=== PATIENT | female | born 1935 | race Caucasian/White ===

== ENCOUNTER 2017-01-09 03:10 | Emergency (ER) | payer MEDICAID, OTHER ==
[2017-01-09] MEDS ORDERED: SOLUMEDROL 125 MG/2 ML 125 MG/2 ML PDS ONE ×2 (03:13→03:21)
[2017-01-09] MEDS ORDERED: ALBUTEROL/IPRATROPIUM 1 VIAL SOL ONE ×2 (03:15→03:21)
[2017-01-09] MEDS ORDERED: ALBUTEROL/IPRATROPIUM 1 VIAL SOL INH ONE ×2 (03:18→03:20)
[2017-01-09] MEDS ORDERED: MAGNESIUM SULFATE 5 GM/10 ML SOL ONE (03:25)
[2017-01-09] MEDS ORDERED: MORPHINE SULFATE 10 MG/ML SOL IV ONE (03:34)
[2017-01-09] MEDS ORDERED: FUROSEMIDE 100 MG SOL IV ONE (03:34)
[2017-01-09] MEDS ORDERED: FUROSEMIDE 100 MG SOL ONE (03:35)
[2017-01-09] MEDS ORDERED: MORPHINE SULFATE 10 MG/ML SOL ONE (03:35)
[2017-01-09] MEDS ORDERED: SODIUM CHLORIDE 0.9% FLUSH 10 ML SOL IV PRN (03:35)
[2017-01-09] MEDS ORDERED: ACETAMINOPHEN 500 MG 500 MG TAB PO ONE (03:51)
[2017-01-09 04:02] LABS: BASOPHILS % (AUTO) 1 % (0-3); EOSINOPHILS % (AUTO) 0 % (0-9); HEMATOCRIT 41 % (35-47); MEAN CORPUSCULAR HGB CONC 33.9 gm/dl (32.0-36.0); MEAN CORPUSCULAR VOLUME 86 fL (81-99); MONOCYTES % (AUTO) 7.6 % (0-12); NEUTROPHILS % (AUTO) 77.7 % (37-80)
[2017-01-09 04:04] LABS: ABG PH 7.42 (7.35-7.45)
[2017-01-09] MEDS ORDERED: ACETAMINOPHEN 500 MG 500 MG TAB ONE (04:09)
[2017-01-09 04:10] LABS: CALCIUM 8.5 mg/dl (8.5-10.1); MAGNESIUM 1.9 mg/dl (1.8-2.4); POTASSIUM 3.7 mMol/L (3.5-5.1)
[2017-01-09 04:42] LABS: APPEARANCE,URINE Slightly Cloudy; BILIRUBIN,URINE NEGATIVE (NEGATIVE); COLOR,URINE Yellow; GLUCOSE, URINE (UA) NEGATIVE (NEGATIVE); KETONES,URINE TRACE (NEGATIVE); LEUKOCYTE ESTERASE ,URINE NEGATIVE (NEGATIVE); NITRATE,URINE NEGATIVE (NEGATIVE); OCCULT BLOOD,URINE 1+ (NEG-TRACE); UROBILINOGEN,URINE 0.2 (0.2-1.0 EU)
[2017-01-09 04:51] LABS: WBC,URINE 0-3 (0-5AV/HPF)
[2017-01-09 04:57] VITALS: BP 122/55; PULSE 93; RESP 22; TEMP 100; O2SAT 97
[2017-01-09] MEDS ORDERED: ENOXAPARIN 60 MG SOL SC SCH (05:00)
[2017-01-09] MEDS ORDERED: SOLUMEDROL 125 MG/2 ML 125 MG/2 ML PDS IV ONE (05:00)
[2017-01-09] MEDS ORDERED: ENOXAPARIN 60 MG SOL SC ONE (05:00)
[2017-01-09] MEDS ORDERED: ASPIRIN 81 MG CHEWABLE CTB ONE (05:00)
[2017-01-09] MEDS ORDERED: ASPIRIN 325 MG TAB PO SCH (09:00)
== END 2017-01-09 05:05 | disposition short-term general hospital (02) | DRG 311 ==
LOC: ED 03:10
DX: I24.9 Acute ischemic heart disease, unspecified (principal); R06.00 Dyspnea, unspecified
CPT/HCPCS: 36415; 36600; 71010; 80048; 81001; 82803; 83735; 83880; 84484; 85025; 87040; 87804; 93005; 99291; J1650; J1940; J2270; J2930; J3475; J7620

== ENCOUNTER 2017-02-08 20:55 | Emergency (ER) | payer OTHER ==
[2017-02-08 21:06] VITALS: BP 168/79; PULSE 73; RESP 20; TEMP 97.7; O2SAT 98
[2017-02-08 22:17] LABS: APPEARANCE,URINE Slightly Cloudy; BILIRUBIN,URINE NEGATIVE (NEGATIVE); COLOR,URINE Yellow; GLUCOSE, URINE (UA) NEGATIVE (NEGATIVE); KETONES,URINE NEGATIVE (NEGATIVE); LEUKOCYTE ESTERASE ,URINE TRACE (NEGATIVE); NITRATE,URINE NEGATIVE (NEGATIVE); OCCULT BLOOD,URINE TRACE LYSED (NEG-TRACE); PH,URINE 5.5; UROBILINOGEN,URINE 0.2 (0.2-1.0 EU)
[2017-02-08 22:28] LABS: RBC,URINE 0-3 (0-3AV/HPF)
== END 2017-02-08 23:05 | disposition home or self-care (01) | DRG 392 ==
LOC: ED 20:55
DX: K59.00 Constipation, unspecified (principal)
CPT/HCPCS: 51798; 74020; 81001; 99282

== ENCOUNTER 2017-02-18 21:04 | Emergency (ER) | payer OTHER ==
[2017-02-18] MEDS ORDERED: APAP/HYDROCODONE 325/5 TAB PO ONE (21:16)
[2017-02-18] MEDS ORDERED: LABETALOL HYDROCHLORIDE 5 MG/ML SOL IV ONE ×2 (21:18→21:20)
[2017-02-18] MEDS ORDERED: APAP/HYDROCODONE 325/5 TAB ONE (21:18)
[2017-02-18 21:31] VITALS: RESP 18; TEMP 97.5; O2SAT 94
[2017-02-18] MEDS ORDERED: FUROSEMIDE 20 MG TAB ONE (22:00)
[2017-02-18 22:14] VITALS: BP 151/57; PULSE 59
[2017-02-19] MEDS ORDERED: FUROSEMIDE 20 MG TAB PO SCH (09:00)
== END 2017-02-18 22:10 | disposition home or self-care (01) | DRG 948 ==
LOC: ED 21:04
DX: G89.18 Other acute postprocedural pain (principal); Z95.1 Presence of aortocoronary bypass graft; I50.9 Heart failure, unspecified; I11.0 Hypertensive heart disease with heart failure
CPT/HCPCS: 71010; 84484; 93005; 96374; 99284

== ENCOUNTER 2017-11-06 07:34 | Emergency (ER) | payer MEDICARE, OTHER ==
[2017-11-06 08:05] VITALS: TEMP 98.8
[2017-11-06 09:14] VITALS: RESP 20
[2017-11-06 09:15] VITALS: BP 124/76; PULSE 100; O2SAT 91
== END 2017-11-06 09:01 | disposition home or self-care (01) | DRG 194 ==
LOC: ED 07:34
DX: J18.9 Pneumonia, unspecified organism (principal); J45.901 Unspecified asthma with (acute) exacerbation; Z99.81 Dependence on supplemental oxygen
CPT/HCPCS: 71046; 87804; 99283

== ENCOUNTER 2017-11-21 03:29 | Emergency (ER) | payer MEDICARE ==
[2017-11-21 04:11] VITALS: RESP 24
[2017-11-21 04:35] LABS: BASOPHILS % (AUTO) 0 % (0-3); EOSINOPHILS % (AUTO) 0 % (0-9); HEMATOCRIT 31 % (35-47); MEAN CORPUSCULAR VOLUME 82 fL (81-99); MONOCYTES % (AUTO) 6.5 % (0-12); NEUTROPHILS % (AUTO) 88.1 % (37-80)
[2017-11-21 04:51] LABS: CALCIUM 8.2 mg/dl (8.5-10.1); GLOM FILT RATE 63 mL/min (>60); POTASSIUM 3.5 mMol/L (3.5-5.1); SODIUM 137 mMol/L (136-145)
[2017-11-21 04:54] VITALS: O2SAT 93
[2017-11-21 05:46] VITALS: BP 151/80; PULSE 102; TEMP 97
[2017-11-21] MEDS ORDERED: DOXYCYCLINE 100 MG TAB PO ONE (06:03)
[2017-11-21] MEDS ORDERED: DOXYCYCLINE 100 MG TAB ONE (06:08)
== END 2017-11-21 06:18 | disposition home or self-care (01) | DRG 195 ==
LOC: ED 03:29
DX: J18.9 Pneumonia, unspecified organism (principal); E11.9 Type 2 diabetes mellitus without complications; R06.89 Other abnormalities of breathing; Z95.1 Presence of aortocoronary bypass graft
CPT/HCPCS: 36415; 71046; 71275; 80048; 83880; 84484; 85025; 85378; 87804; 99283; 99285; Q9967; A9270-GY

== ENCOUNTER 2017-12-04 21:06 | Emergency (ER) | payer MEDICARE ==
[2017-12-04 21:31] VITALS: TEMP 98.1
[2017-12-04 21:57] LABS: BASOPHILS % (AUTO) 1 % (0-3); EOSINOPHILS % (AUTO) 2 % (0-9); HEMATOCRIT 34 % (35-47); MEAN CORPUSCULAR HGB CONC 33.5 gm/dl (32.0-36.0); MEAN CORPUSCULAR VOLUME 84 fL (81-99); MONOCYTES % (AUTO) 7.3 % (0-12); NEUTROPHILS % (AUTO) 73.6 % (37-80)
[2017-12-04] MEDS ORDERED: SODIUM CHLORIDE 0.9% 500 ML 500 ML IV ONE (21:58)
[2017-12-04] MEDS ORDERED: SODIUM CHLORIDE 0.9% FLUSH 10 ML SOL IV PRN (21:58)
[2017-12-04 22:14] LABS: CALCIUM 8.7 mg/dl (8.5-10.1); GLOM FILT RATE 49 mL/min (>60); POTASSIUM 3.7 mMol/L (3.5-5.1); SODIUM 142 mMol/L (136-145)
[2017-12-04 23:32] VITALS: BP 140/75; PULSE 78; RESP 22; O2SAT 96
== END 2017-12-04 22:58 | disposition home or self-care (01) | DRG 194 ==
LOC: ED 21:06
DX: J18.9 Pneumonia, unspecified organism (principal); E86.0 Dehydration; J90 Pleural effusion, not elsewhere classified; R55 Syncope and collapse; R07.9 Chest pain, unspecified
CPT/HCPCS: 71045; 80048; 84484; 85025; 93005; 96365; 99285

== ENCOUNTER 2017-12-22 06:33 | Day surgery (SDC) | payer MEDICARE ==
[~2017-12-22 06:33] MED LIST: ACETAZOLAMIDE 250 MG PO ONE
[2017-12-22] MEDS: PROPARACAINE HCL 0.5% OPHTHALMIC SOL ONE ×3 (06:48→08:05)
[2017-12-22] MEDS: CYCLOPENTOLATE 1% SOL ONE ×2 (06:48→07:00)
[2017-12-22] MEDS: PHENYLEPHRINE HCL 10% OPHTHAL SOL ONE ×2 (06:48→07:00)
[2017-12-22] MEDS: KETOROLAC 0.5% OPTH 60 DROP SOL ONE ×2 (06:49→07:01)
[2017-12-22 06:53] VITALS: TEMP 97.5; O2SAT 95
[2017-12-22] MEDS ORDERED: MIDAZOLAM 2 MG/2 ML SOL ONE (07:00)
[2017-12-22] MEDS ORDERED: BSS 500 ML 500 ML IR ONE (07:57)
[2017-12-22] MEDS ORDERED: LIDOCAINE HCL 1% MPF SOL ONE (07:57)
[2017-12-22] MEDS ORDERED: POVIDONE IODINE 5% SOL ONE (07:57)
[2017-12-22 08:30] VITALS: BP 184/111; PULSE 90; RESP 20
== END 2017-12-22 08:49 | disposition home or self-care (01) | DRG 125 ==
LOC: SURG 06:33
PROVIDERS: ATTEND Ophthalmology
DX: H25.9 Unspecified age-related cataract (principal)
CPT/HCPCS: J2250; A9270-GY; J2001

== ENCOUNTER 2018-01-31 06:00 | Day surgery (SDC) | payer MEDICARE, OTHER ==
[~2018-01-31 06:00] MED LIST changes: +ACETAZOLAMIDE 500 MG CER ONE
[2018-01-31] MEDS: PROPARACAINE HCL 0.5% OPHTHALMIC SOL ONE ×3 (06:14→07:27)
[2018-01-31] MEDS: PHENYLEPHRINE HCL 10% OPHTHAL SOL ONE ×2 (06:14→06:26)
[2018-01-31] MEDS: KETOROLAC 0.5% OPTH 60 DROP SOL ONE ×2 (06:15→06:27)
[2018-01-31] MEDS: CYCLOPENTOLATE 1% SOL ONE ×2 (06:15→06:27)
[2018-01-31] MEDS ORDERED: FENTANYL 100MCG/2ML SOL ONE (06:54)
[2018-01-31] MEDS ORDERED: MIDAZOLAM 2 MG/2 ML SOL ONE (06:55)
[2018-01-31] MEDS ORDERED: POVIDONE IODINE 5% SOL ONE (07:01)
[2018-01-31] MEDS ORDERED: CEFUROXIME SODIUM/0.9% NACL/PF 10 MG/ML VIAL IO ONE (07:01)
[2018-01-31] MEDS ORDERED: BSS 500 ML 500 ML IR ONE (07:01)
[2018-01-31] MEDS ORDERED: LIDOCAINE HCL 1% MPF SOL ONE (07:01)
[2018-01-31] MEDS ORDERED: TRIAMCINOLONE ACETONIDE 10 MG/ML VIAL ONE (07:03)
[2018-01-31 08:11] VITALS: BP 163/95; PULSE 80; RESP 20; TEMP 98.8; O2SAT 96
== END 2018-01-31 08:20 | disposition home or self-care (01) | DRG 125 ==
LOC: SURG 06:00
PROVIDERS: ATTEND Ophthalmology
DX: H25.9 Unspecified age-related cataract (principal); E11.8 Type 2 diabetes mellitus with unspecified complications
CPT/HCPCS: 82962; J2250; J3010; A9270-GY; J0697; J2001; J3300

== ENCOUNTER 2018-09-04 15:31 | Emergency (ER) | payer OTHER ==
[2018-09-04 15:38] VITALS: TEMP 97.2; O2SAT 100
[2018-09-04] MEDS ORDERED: SODIUM CHLORIDE 0.9% FLUSH 10 ML SOL IV PRN (15:47)
[2018-09-04 15:54] LABS: BASOPHILS % (AUTO) 1 % (0-3); EOSINOPHILS % (AUTO) 1 % (0-9); HEMATOCRIT 40 % (35-47); HEMOGLOBIN 12.5 gm/dl (12.0-15.5); LYMPHOCYTES % (AUTO) 15.3 % (10-50); MEAN CORPUSCULAR HEMOGLOBIN 28.6 pg (27.0-32.0); MEAN CORPUSCULAR HGB CONC 31.5 gm/dl (32.0-36.0); MEAN CORPUSCULAR VOLUME 91 fL (81-99); MONOCYTES % (AUTO) 7.9 % (0-12); NEUTROPHILS % (AUTO) 74.3 % (37-80)
[2018-09-04] MEDS ORDERED: CLOPIDOGREL 75 MG TAB PO ONE (15:55)
[2018-09-04] MEDS ORDERED: HEPARIN SODIUM 5000 U/ML SOL IV ONE (15:55)
[2018-09-04] MEDS ORDERED: MORPHINE SULFATE 10 MG/ML SOL IV PRN (15:55)
[2018-09-04] MEDS ORDERED: NITROGLYCERIN 0.4 MG TAB SL PRN (15:55)
[2018-09-04] MEDS ORDERED: TENECTEPLASE 50 MG KIT IVP STA (15:55)
[2018-09-04] MEDS ORDERED: CLOPIDOGREL 75 MG TAB ONE (15:57)
[2018-09-04] MEDS ORDERED: HEPARIN SODIUM 5000 U/ML SOL ONE ×2 (15:58→16:02)
[2018-09-04] MEDS ORDERED: SODIUM CHLORIDE 0.9% 500 ML 500 ML IV SCH (16:00)
[2018-09-04] MEDS ORDERED: HEPARIN PREMIX 25,000 U/250 ML SOL IV SCH (16:00)
[2018-09-04 16:05] LABS: INR 0.93 (0.86-1.12)
[2018-09-04 16:08] LABS: ALBUMIN 3.7 gm/dl (3.4-5.0); ALKALINE PHOSPHATASE 138 IU/L (46-116); ALT 34 IU/L (14-63); AST 25 IU/L (15-37); BILIRUBIN,TOTAL 0.4 mg/dl (0.2-1.0); BLOOD UREA NITROGEN 56 mg/dl (7-18); CALCIUM 9.3 mg/dl (8.5-10.1); CHLORIDE 99 mMol/L (98-107); CREATININE 1.48 mg/dl (0.60-1.00); GLUCOSE 122 mg/dl (74-106); POTASSIUM 5.1 mMol/L (3.5-5.1); SODIUM 136 mMol/L (136-145); TOTAL PROTEIN 8.1 gm/dl (6.4-8.2); TROP I < 0.017 ng/ml (0.000-0.056)
[2018-09-04 16:34] VITALS: RESP 22
[2018-09-04 16:35] VITALS: BP 163/97; PULSE 94
== END 2018-09-04 16:24 | disposition short-term general hospital (02) | DRG 282 ==
LOC: ED 15:31
DX: I21.02 ST elevation (STEMI) myocardial infarction involving left anterior descending coronary artery (principal); R06.02 Shortness of breath
CPT/HCPCS: 80053; 83880; 84484; 85025; 85610; 93005; 96374; 99285; 99291; J1644; A9270-GY

== ENCOUNTER 2019-03-13 11:06 | Outpatient (CLI) | payer OTHER ==
[2018-09-04 15:38] VITALS: O2SAT 100
[2019-03-13 12:14] LABS: CALCIUM 9.2 mg/dl (8.5-10.1); CHOL/HDL RATIO 2.9 (2.2-4.5); CREATININE 0.74 mg/dl (0.60-1.00); LDL CHOLESTEROL,CALCULATED 56.6 mg/dl (50-130); LDL/HDL RATIO 1.5 (1.1-3.1); POTASSIUM 4.1 mMol/L (3.5-5.1)
[2019-03-13 12:20] LABS: BASOPHILS % (AUTO) 1 % (0-3); EOSINOPHILS % (AUTO) 2 % (0-9); HEMATOCRIT 28 % (35-47); HEMOGLOBIN 8.7 gm/dl (12.0-15.5); LYMPHOCYTES % (AUTO) 9.2 % (10-50); MEAN CORPUSCULAR HEMOGLOBIN 25.6 pg (27.0-32.0); MEAN CORPUSCULAR VOLUME 83 fL (81-99); MONOCYTES % (AUTO) 9.3 % (0-12); NEUTROPHILS % (AUTO) 78.5 % (37-80)
== END 2019-03-13 11:07 | disposition home or self-care (01) | DRG 310 ==
LOC: CONVCARE 11:06
PROVIDERS: ATTEND Internal Medicine Cardiovascular Disease
DX: I48.0 Paroxysmal atrial fibrillation (principal); I25.10 Atherosclerotic heart disease of native coronary artery without angina pectoris; J44.9 Chronic obstructive pulmonary disease, unspecified; I69.391 Dysphagia following cerebral infarction; R13.10 Dysphagia, unspecified
CPT/HCPCS: 36415; 80048; 80061; 85025

== ENCOUNTER 2019-05-06 11:10 | Emergency (ER) | payer OTHER ==
[2019-05-06 11:44] VITALS: RESP 20
[2019-05-06] MEDS ORDERED: FLEET ENEMA PR PRN (12:02)
[2019-05-06] MEDS ORDERED: MAGNESIUM CITRATE SOL PO PRN (12:02)
[2019-05-06] MEDS ORDERED: MAGNESIUM CITRATE SOL ONE (13:02)
[2019-05-06 13:32] VITALS: BP 162/99; PULSE 68; TEMP 97.7; O2SAT 95
== END 2019-05-06 13:25 | disposition home or self-care (01) | DRG 392 ==
LOC: ED 11:10
DX: K59.00 Constipation, unspecified (principal); E11.9 Type 2 diabetes mellitus without complications
CPT/HCPCS: 99282; 99283; A9270-GY

== ENCOUNTER 2019-05-18 22:06 | Emergency (ER) | payer OTHER ==
[2019-05-18 22:07] VITALS: O2SAT 95
[2019-05-18 22:16] VITALS: RESP 20; TEMP 96.9
[2019-05-18 22:57] LABS: BASOPHILS % (AUTO) 1 % (0-3); EOSINOPHILS % (AUTO) 3 % (0-9); HEMATOCRIT 31 % (35-47); HEMOGLOBIN 9.7 gm/dl (12.0-15.5); LYMPHOCYTES % (AUTO) 13.9 % (10-50); MEAN CORPUSCULAR HEMOGLOBIN 26.2 pg (27.0-32.0); MEAN CORPUSCULAR HGB CONC 31.1 gm/dl (32.0-36.0); MEAN CORPUSCULAR VOLUME 84 fL (81-99); MONOCYTES % (AUTO) 11.2 % (0-12); NEUTROPHILS % (AUTO) 70.7 % (37-80)
[2019-05-18 23:07] LABS: CARBON DIOXIDE 30.4 mEq/L (21-32); CREATININE 0.65 mg/dl (0.60-1.00)
[2019-05-19 00:04] VITALS: BP 170/81; PULSE 57
== END 2019-05-18 23:53 | disposition home or self-care (01) | DRG 93 ==
LOC: ED 22:06
DX: R29.818 Other symptoms and signs involving the nervous system (principal); R29.810 Facial weakness; E11.9 Type 2 diabetes mellitus without complications; R40.2412 Glasgow coma scale score 13-15, at arrival to emergency department; M46.92 Unspecified inflammatory spondylopathy, cervical region
CPT/HCPCS: 36415; 72040; 80048; 85025; 99283

== ENCOUNTER 2019-05-20 22:01 | Emergency (ER) | payer OTHER ==
[2019-05-20] MEDS ORDERED: ASPIRIN 81 MG CHEWABLE CTB PO STA (22:15)
[2019-05-20] MEDS ORDERED: NITROGLYCERIN 0.4 MG TAB SL PRN (22:15)
[2019-05-20] MEDS ORDERED: SODIUM CHLORIDE 0.9% FLUSH 10 ML SOL IV PRN (22:15)
[2019-05-20] MEDS ORDERED: ASPIRIN 81 MG CHEWABLE CTB ONE (22:18)
[2019-05-20 22:21] LABS: BASOPHILS % (AUTO) 1 % (0-3); EOSINOPHILS % (AUTO) 3 % (0-9); HEMATOCRIT 33 % (35-47); HEMOGLOBIN 10.1 gm/dl (12.0-15.5); LYMPHOCYTES % (AUTO) 13.3 % (10-50); MEAN CORPUSCULAR HEMOGLOBIN 25.5 pg (27.0-32.0); MEAN CORPUSCULAR HGB CONC 30.3 gm/dl (32.0-36.0); MEAN CORPUSCULAR VOLUME 84 fL (81-99); MONOCYTES % (AUTO) 8.8 % (0-12)
[2019-05-20] MEDS ORDERED: MORPHINE SULFATE 10 MG/ML SOL IV ONE (22:32)
[2019-05-20 22:33] LABS: INR 1.01 (0.87-1.13)
[2019-05-20 22:38] LABS: BLOOD UREA NITROGEN 20 mg/dl (7-18); CHLORIDE 107 mMol/L (98-107); CREATINE KINASE 56 U/L (26-192); CREATININE 0.72 mg/dl (0.60-1.00); GLUCOSE 109 mg/dl (74-106); TROP I < 0.017 ng/ml (0.000-0.056)
[2019-05-20 22:39] LABS: CARBON DIOXIDE 31.2 mEq/L (21-32)
[2019-05-20] MEDS ORDERED: ALUMINUM/MAGNESIUM 30 ML SUS PO ONE (23:03)
[2019-05-20] MEDS ORDERED: LIDOCAINE HCL 2% (VISCOUS) 15 ML SOL PO ONE (23:03)
[2019-05-20] MEDS ORDERED: LIDOCAINE HCL 2% (VISCOUS) 15 ML SOL ONE (23:04)
[2019-05-20] MEDS ORDERED: ALUMINUM/MAGNESIUM 30 ML SUS ONE (23:04)
[2019-05-20] MEDS ORDERED: MORPHINE SULFATE 10 MG/ML SOL ONE (23:04)
[2019-05-20 23:43] VITALS: TEMP 98.4
[2019-05-21] MEDS ORDERED: LIDOCAINE 5% PATCH 1 PATCH TDM TOP ONE (00:32)
[2019-05-21 01:01] VITALS: BP 170/80; PULSE 65; RESP 16; O2SAT 96
== END 2019-05-21 00:55 | disposition home or self-care (01) | DRG 188 ==
LOC: ED 22:01
DX: J90 Pleural effusion, not elsewhere classified (principal); I50.9 Heart failure, unspecified; M94.0 Chondrocostal junction syndrome [Tietze]; R07.9 Chest pain, unspecified; E11.9 Type 2 diabetes mellitus without complications
CPT/HCPCS: 36415; 71045; 80048; 82550; 84484; 85025; 85610; 85730; 93005; 96374; 99284; 99285; J2270; A9270-GY

== ENCOUNTER 2019-06-10 14:26 | Emergency (ER) | payer OTHER, MEDICAID ==
[2019-06-10 14:32] VITALS: RESP 20; TEMP 102.1
[2019-06-10] MEDS ORDERED: SODIUM CHLORIDE 0.9% 1000ML 1,000 ML IV ONE (14:50)
[2019-06-10] MEDS ORDERED: ALBUTEROL/IPRATROPIUM 1 VIAL SOL INH ONE (14:50)
[2019-06-10 15:14] LABS: BASOPHILS % (AUTO) 0 % (0-3); EOSINOPHILS % (AUTO) 0 % (0-9); HEMATOCRIT 35 % (35-47); HEMOGLOBIN 10.8 gm/dl (12.0-15.5); LYMPHOCYTES % (AUTO) 6.1 % (10-50); MEAN CORPUSCULAR HEMOGLOBIN 26.3 pg (27.0-32.0); MEAN CORPUSCULAR HGB CONC 30.9 gm/dl (32.0-36.0); MEAN CORPUSCULAR VOLUME 85 fL (81-99); MONOCYTES % (AUTO) 6.6 % (0-12); NEUTROPHILS % (AUTO) 86.5 % (37-80)
[2019-06-10] MEDS ORDERED: ALBUTEROL/IPRATROPIUM 1 VIAL SOL ONE (15:14)
[2019-06-10 15:16] LABS: LACTIC ACID 0.8 mMol/L (0.0-2.0)
[2019-06-10 15:32] LABS: ALBUMIN 3.4 gm/dl (3.4-5.0); ALKALINE PHOSPHATASE 136 IU/L (46-116); ALT 23 IU/L (14-63); AST 19 IU/L (15-37); BILIRUBIN,TOTAL 0.4 mg/dl (0.2-1.0); BLOOD UREA NITROGEN 21 mg/dl (7-18); CALCIUM 9.1 mg/dl (8.5-10.1); CHLORIDE 106 mMol/L (98-107); GLUCOSE 138 mg/dl (74-106); TOTAL PROTEIN 7.5 gm/dl (6.4-8.2); TROP I < 0.017 ng/ml (0.000-0.056)
[2019-06-10 16:10] LABS: APPEARANCE,URINE Clear; BILIRUBIN,URINE NEGATIVE (NEGATIVE); COLOR,URINE Yellow; GLUCOSE, URINE (UA) NEGATIVE (NEGATIVE); KETONES,URINE NEGATIVE (NEGATIVE); LEUKOCYTE ESTERASE ,URINE TRACE (NEGATIVE); NITRATE,URINE NEGATIVE (NEGATIVE); OCCULT BLOOD,URINE NEGATIVE (NEG-TRACE); UROBILINOGEN,URINE 0.2 (0.2-1.0 EU)
[2019-06-10 16:32] LABS: INFLUENZA A NEGATIVE (NEGATIVE); INFLUENZA B NEGATIVE (NEGATIVE)
[2019-06-10 17:18] LABS: BACTERIA 1+ (< 1+); CRYSTALS NEGATIVE (0-3 AVE/HPF); RBC,URINE 0-2 (0-3AV/HPF)
[2019-06-10] MEDS ORDERED: CEFTRIAXONE 1 GM PDS 1 GM in SODIUM CHLORIDE 0.9% 50 ML 50 ML IV ONE (17:19)
[2019-06-10] MEDS ORDERED: AZITHROMYCIN 250 MG TAB PO ONE (17:19)
[2019-06-10] MEDS ORDERED: CEFTRIAXONE 1 GM PDS ONE (17:21)
[2019-06-10] MEDS ORDERED: AZITHROMYCIN 250 MG TAB ONE (17:23)
[2019-06-10 18:49] VITALS: BP 134/66; PULSE 85; O2SAT 95
== END 2019-06-10 18:21 | disposition home or self-care (01) | DRG 293 ==
LOC: ED 14:26
DX: I50.32 Chronic diastolic (congestive) heart failure (principal); R50.9 Fever, unspecified; R06.02 Shortness of breath; R05 Cough
CPT/HCPCS: 36415; 71045; 80053; 81001; 83605; 83880; 84484; 85025; 87040; 87088; 87804; 93005; 96365; 96366; 99284; J0696; A9270-GY